=== PATIENT | female | born 1935 | race Caucasian/White ===

== ENCOUNTER → 2019-03-04 | Outpatient (REF) | payer MEDICARE ==
[2019-03-04 19:02] LABS: TOTAL PROTEIN 7.9 GM/DL (6.4-8.2)
[2019-03-04 19:20] LABS: URINE TOTAL PROTEIN 17.5 MG/DL (0-12)
[2019-03-05 13:14] LABS: ALBUMIN 4.52 GM/DL (3.29-5.55); ALBUMIN % 57.2 % (55.8-66.1); ALPHA-1-GLOBULIN % 4.3 % (2.9-4.9); ALPHA-1-GLOBULINS 0.34 GM/DL (0.17-0.41); ALPHA-2-GLOBULINS 0.91 GM/DL (0.42-0.99); ALPHA-2-GLOBULINS % 11.5 % (7.1-11.8); BETA-1-GLOBULINS 0.54 GM/DL (0.28-0.60); BETA-1-GLOBULINS % 6.8 % (4.7-7.2); BETA-2-GLOBULINS 0.43 GM/DL (0.19-0.55); BETA-2-GLOBULINS % 5.4 % (3.2-6.5); GAMMA GLOBULIN % 14.8 % (11.1-18.8); GAMMA GLOBULINS 1.17 GM/DL (0.65-1.58)
[2019-03-05 14:30] LABS: IMMUNOTYPING SERUM IGG ABNORMAL (NORMAL); IMMUNOTYPING SERUM KAPPA ABNORMAL (NORMAL)
[2019-03-12 10:41] LABS: UPEP INTERPRETATION NO M-SPIKE NOTED; URINE VOLUME RANDOM ML
== END ==
LOC: M LAB REF 17:17
PROVIDERS: ATTEND Nurse Practitioner Family
DX: E83.52 Hypercalcemia (principal)

== ENCOUNTER → 2020-12-15 | Outpatient (REF) | payer MEDICARE ==
[2020-12-15 18:39] LABS: TOTAL PROTEIN 7.8 GM/DL (6.4-8.2)
== END ==
LOC: M LAB REF 17:07
PROVIDERS: ATTEND Nurse Practitioner Family
DX: I50.9 Heart failure, unspecified (principal); E83.52 Hypercalcemia

== ENCOUNTER → 2020-12-16 | Outpatient (CLI) | payer MEDICARE ==
--- NOTE | 2020-12-16 14:08 | REP ---
INDICATION: DYSPNEA COMPARISON: None. TECHNIQUE: PA/Lateral FINDINGS: Lungs: Clear, no infiltrate. Heart: Normal in size. Mediastinum: There is calcification of the thoracic aorta. The mediastinal silhouette is unremarkable. Pleural angles: Unremarkable.. Bones and soft tissues: There are degenerative changes of the spine without evidence of compression deformity. IMPRESSION: No acute pulmonary disease. <Electronically signed by Kelvin Spring > 12/16/20 [id number]
== END ==
LOC: M WUC 13:29
PROVIDERS: ATTEND Nurse Practitioner Family
DX: R06.00 Dyspnea, unspecified (principal); I70.0 Atherosclerosis of aorta; M47.9 Spondylosis, unspecified

== ENCOUNTER → 2022-05-22 | Outpatient (REF) | payer MEDICARE | LOC: M LAB REF 17:07 | PROVIDERS: ATTEND Nurse Practitioner Family | DX: N39.0 Urinary tract infection, site not specified (principal) ==

== ENCOUNTER → 2022-12-14 | Outpatient (REF) | payer MEDICARE ==
[2022-12-14 17:42] LABS: FOLATE 9.9 NG/ML (>5.4)
== END ==
LOC: M LAB REF 16:48
PROVIDERS: ATTEND Nurse Practitioner Family
DX: D51.9 Vitamin B12 deficiency anemia, unspecified (principal)